=== PATIENT | male | born 1995 | race Asian ===

== ENCOUNTER 2017-02-24 21:08 | Emergency (ER) | payer SELFPAY ==
[~2017-02-24] VITALS: Ht 170.2 cm; Wt 64.0 kg
[2017-02-24 21:15] VITALS: BP 135/85
== END 2017-02-24 21:37 | disposition home or self-care (01) ==
LOC: ED 21:34
DX: S01.81XD Laceration without foreign body of other part of head, subsequent encounter (principal); X58.XXXD Exposure to other specified factors, subsequent encounter
CPT/HCPCS: 99282